=== PATIENT | male | born 1965 | race Caucasian/White ===

== ENCOUNTER 2021-08-21 11:29 | Day surgery (SDC) | payer BC ==
[2021-08-19 10:29] VITALS: BMI 37.2
[2021-08-21] MEDS ORDERED: Lidocaine 1% MPF 2 ML VIAL ONE (12:04)
[2021-08-21] MEDS ORDERED: Lidocaine 1% PF 5 ML VIAL ONE (13:09)
[2021-08-21] MEDS ORDERED: Ondansetron PF 4 MG/2 ML Vial ONE (13:09)
[2021-08-21] MEDS ORDERED: PROPOFOL 20 ML ONE (13:09)
[2021-08-21] MEDS ORDERED: Bupivacaine PF 0.5% 30 ML VIAL ONE (13:16)
[2021-08-21] MEDS ORDERED: Neomycin-Polymyxin 1 ML AMP ONE (13:16)
[2021-08-21] MEDS ORDERED: ePHEDrine Sulfate 50 MG/10 ML VIAL ONE (13:24)
== END 2021-08-21 15:15 | disposition home or self-care (01) ==
LOC: CSHSDC 11:29
PROVIDERS: ATTEND Podiatrist Foot & Ankle Surgery
PROC: 0QSP04Z Reposition Left Metatarsal with Internal Fixation Device, Open Approach (ICD-10-PCS; principal; 2021-08-21)
DX: M20.12 Hallux valgus (acquired), left foot (principal); M21.612 Bunion of left foot; I10 Essential (primary) hypertension; G47.33 Obstructive sleep apnea (adult) (pediatric); E11.319 Type 2 diabetes mellitus with unspecified diabetic retinopathy without macular edema; K51.90 Ulcerative colitis, unspecified, without complications; E55.9 Vitamin D deficiency, unspecified; K76.0 Fatty (change of) liver, not elsewhere classified; Z68.37 Body mass index [BMI] 37.0-37.9, adult; Z79.899 Other long term (current) drug therapy; Z79.4 Long term (current) use of insulin; E78.2 Mixed hyperlipidemia
CPT/HCPCS: 36416; 93005; 93010; C1713; C1769; C1776; J0690; J2405; J2704; S0020